=== PATIENT | female | born 1940 | race Hispanic/Latino ===

== ENCOUNTER 2020-11-30 04:19 | Observation (INO) | payer MEDICARE ==
[2020-11-30 05:53] LABS: Basophils # (Auto) 0.1 K/mm3 (0.0-0.1); Basophils % (Auto) 0.9 % (0.0-1.8); Eosinophils % (Auto) 0.3 % (0.0-4.3); Hematocrit 41.1 % (30.3-42.9); Hemoglobin 14.1 gm/dl (10.1-14.3); Lymphocytes # (Auto) 1.4 K/mm3 (1.2-5.4); Lymphocytes % (Auto) 10.9 % (13.4-35.0); Mean Corpuscular HGB Conc 34 % (30-34); Mean Corpuscular Volume 98 fl (79-97); Monocytes # (Auto) 0.9 K/mm3 (0.0-0.8); Monocytes % (Auto) 6.6 % (0.0-7.3); Platelet Count 198 K/mm3 (140-440); Red Blood Count 4.18 M/mm3 (3.65-5.03); Red Cell Distribution Width 14.1 % (13.2-15.2)
--- NOTE | 2020-11-30 06:14 | XRay Report ---
CHEST 1 VIEW [id number] INDICATION / CLINICAL INFORMATION: Chest Pain COMPARISON: None available. FINDINGS: SUPPORT DEVICES: None HEART / MEDIASTINUM: No significant abnormality. LUNGS / PLEURA: Mild probable scarring is seen in the left base. No significant acute infiltrates are seen. No pneumothorax. ADDITIONAL FINDINGS: No significant additional findings. IMPRESSION: No significant acute abnormality Signer Name: Mic Nunez MD Signed: 11/30/2020 6:09 AM Workstation Name: [id number]
[2020-11-30 06:25] LABS: Alanine Aminotransferase 12 units/L (7-56); Albumin 3.8 g/dL (3.9-5); BUN/Creatinine Ratio 10; Blood Urea Nitrogen 9 mg/dL (7-17); Calcium 8.6 mg/dL (8.4-10.2); Hemolysis Index 4
[2020-11-30] MEDS ORDERED: METOPROLOL TARTRATE 5 MG/5 ML INJ IV ONE (06:28)
--- NOTE | 2020-11-30 06:35 | Emergency Department Report ---
ED Chest Pain HPI - General Chief Complaint: Chest Pain Stated Complaint: CP Time Seen by Provider: 11/30/20 06:06 Source: patient, EMS Mode of arrival: Stretcher Limitations: No Limitations - History of Present Illness Initial Comments: This is a 80-year-old female who presents to the emergency department via EMS from home with complaint of shortness of breath and chest pain. The patient woke up around 2:30 in the morning with the shortness of breath and shortly afterwards developed midsternal chest pressure that she says later radiated to both of her jaws. She received a full dose aspirin and 1 sublingual nitroglycerin in route with EMS without much change. Currently, at the time of my examination, the patient says her chest pain is 9 out of 10 in intensity. No known aggravating or alleviating factors. She has a history of hypertension, gout, hyperlipidemia, left carotid endarterectomy. She denies any tobacco or illicit drug use. Her father had an NV in his early 50s. The patient had a negative heart catheterization done at [facility] in 2019. Her primary care physician is Dr. Padgett and her field installer is a Dr. Motley. No recent travel or sick contacts at home. She denies any fever, cough, lower extremity swelling, vomiting, abdominal pain. - Related Data Home Medications Medication Instructions Recorded Confirmed Last Taken Amlodipine Besylate [Norvasc] 1 tab PO DAILY 11/30/20 11/30/20 11/29/20 Metoprolol [Lopressor] 25 mg PO ONCE 11/30/20 11/30/20 11/29/20 Xanax TAB 0.25 mg PO PRN PRN 11/30/20 11/30/20 11/29/20 allopurinoL [Zyloprim] 300 mg PO QDAY 11/30/20 11/30/20 11/29/20 predniSONE [Deltasone] 1 tab PO DAILY 11/30/20 11/30/20 11/29/20 traZODone [Desyrel] 100 mg PO QHS 11/30/20 11/30/20 11/29/20 Allergies Allergy/AdvReac Type Severity Reaction Status Date / Time codeine Allergy Rash Verified 11/30/20 04:43 Heart Score - HEART Score History: Moderately suspicious EKG: Non-specific Age: > 65 Risk factors: 1-2 risk factors Troponin: < normal limit HEART Score: 5 - EKG Read Time Time EKG Completed: 04:54 EKG Read Time: 05:11 - Critical Actions Critical Actions: 4-6 pts:12-16.6% risk of adverse cardiac event. Should be admitted ED Review of Systems ROS: Stated complaint: CP Other details as noted in HPI Comment: All other systems reviewed and negative Constitutional: denies: chills, fever Eyes: denies: eye pain, vision change ENT: denies: ear pain, throat pain Respiratory: shortness of breath. denies: no symptoms reported, cough Cardiovascular: chest pain. denies: edema Gastrointestinal: denies: abdominal pain, vomiting Genitourinary: denies: dysuria, discharge Musculoskeletal: denies: back pain, arthralgia Skin: denies: rash, lesions Neurological: denies: headache, weakness ED Past Medical Hx - Social History Smoking Status: Never Smoker Substance Use Type: Alcohol - Medications Home Medications: Home Medications Medication Instructions Recorded Confirmed Last Taken Type Amlodipine Besylate [Norvasc] 1 tab PO DAILY 11/30/20 11/30/20 11/29/20 History Metoprolol [Lopressor] 25 mg PO ONCE 11/30/20 11/30/20 11/29/20 History Xanax TAB 0.25 mg PO PRN PRN 11/30/20 11/30/20 11/29/20 History allopurinoL [Zyloprim] 300 mg PO QDAY 11/30/20 11/30/20 11/29/20 History predniSONE [Deltasone] 1 tab PO DAILY 11/30/20 11/30/20 11/29/20 History traZODone [Desyrel] 100 mg PO QHS 11/30/20 11/30/20 11/29/20 History ED Physical Exam - General Limitations: No Limitations - Other Other exam information: GENERAL: The patient is well-developed well-nourished. HENT: Normocephalic. Atraumatic. Patient has moist mucous membranes. EYES: Extraocular motions are intact. NECK: Supple. Trachea is midline. CHEST/LUNGS: Clear to auscultation. There is no respiratory distress noted. HEART/CARDIOVASCULAR: Regular. There is mild tachycardia. There is no murmur. ABDOMEN: Abdomen is soft, nontender. Patient has normal bowel sounds. There is no abdominal distention. SKIN: Skin is warm and dry. NEURO: The patient is awake, alert, and oriented. The patient is cooperative. The patient has no focal neurologic deficits. Normal speech. MUSCULOSKELETAL: There is no tenderness or deformity. There is no limitation range of motion. ED Course Vital Signs 11/30/20 11/30/20 11/30/20 04:28 04:34 05:01 Temperature 99.3 F Pulse Rate 121 H 122 H 110 H Respiratory 17 17 13 Rate Blood Pressure 173/77 166/76 Blood Pressure 173/77 [Right] O2 Sat by Pulse 97 97 95 Oximetry 11/30/20 11/30/20 11/30/20 06:01 06:31 06:36 Temperature Pulse Rate 104 H 113 H Respiratory 12 Rate Blood Pressure 177/86 177/86 178/96 Blood Pressure [Right] O2 Sat by Pulse 94 95 Oximetry 11/30/20 11/30/20 06:45 07:01 Temperature Pulse Rate 94 H 95 H Respiratory 23 14 Rate Blood Pressure 178/96 160/90 Blood Pressure [Right] O2 Sat by Pulse 94 95 Oximetry CHERYLE score - Cheryle Score Age > 65: (1) Yes Aspirin use within the Past 7 Days: (0) No 3 or more CAD Risk Factors: (0) No 2 or more Angina events in past 24 hrs: (1) Yes Known CAD with more than 50% Stenosis: (0) No Elevated Cardiac Markers: (0) No ST Deviation Greater than 0.5mm: (0) No CHERYLE Score: 2 ED Medical Decision Making - Lab Data Result diagrams: 11/30/20 05:36 11/30/20 05:36 - EKG Data -: EKG Interpreted by Mo EKG shows normal: sinus rhythm, axis (Left axis deviation), intervals, QRS complexes (LVH), ST-T waves Rate: tachycardia (111 bpm) - EKG Data When compared to previous EKG there are: previous EKG unavailable Interpretation: other (Sinus rhythm at 111 bpm, left axis deviation, LVH. No ST elevation NV) - Radiology Data Radiology results: image reviewed interpreted by me: Chest x-ray does not show any acute process. There are no pleural effusions, obvious pneumonia and there is no pneumothorax. No widened mediastinum. - Medical Decision Making This patient presents to the emergency department with a complaint of some acute shortness of breath and midsternal chest pain that started around 2:30 AM. EKG does not have any morphology consistent with ST elevation myocardial infarction. Chest x-ray does not show any pneumonia, pleural effusions, pneumothorax, widened mediastinum, or any other acute process. Patient's labs have been unremarkable thus far including CBC, metabolic panel, negative troponin and negative D-dimer. Patient continued to have pain despite receiving aspirin and nitroglycerin with EMS. She presents with hypertension but the r est of her vital signs are reassuring including being afebrile. The patient was given a dose of IV analgesia. She has a moderate heart score. She will be admitted to the hospital for further evaluation and treatment was accepted for admission by the hospitalist service. Critical Care Time: No Critical care attestation.: If time is entered above; I have spent that time in minutes in the direct care of this critically ill patient, excluding procedure time. ED Disposition Clinical Impression: Acute chest pain, Angina at rest Hypertension Qualifiers: Hypertension type: essential hypertension Qualified Code(s): I10 - Essential (primary) hypertension Disposition: OP ADMIT IP TO THIS HOSP Is pt being admited?: Yes Condition: Serious Time of Disposition: 07:30
[2020-11-30] MEDS ORDERED: MORPHINE 2 MG/1 ML INJ IV ONE (07:00)
[2020-11-30] MEDS ORDERED: IPRATROPIUM/ALBUTEROL SULFATE 3 ML AMPUL.NEB IH ONE (07:01)
[2020-11-30] MEDS ORDERED: MORPHINE 4 MG/1 ML INJ IV ONE (07:02)
[2020-11-30] MEDS ORDERED: ONDANSETRON 4 MG/2 ML INJ IV ONE (07:02)
[2020-11-30] MEDS ORDERED: MORPHINE 2 MG/1 ML INJ ONE (07:11)
[2020-11-30] MEDS ORDERED: hydrALAZINE 20 MG/1 ML INJ IV PRN (08:37)
[2020-11-30] MEDS ORDERED: XANAX 0.25 MG PO PRN (10:04)
--- NOTE | 2020-11-30 10:14 | History and Physical Report ---
History of Present Illness Date of examination: 11/30/20 Date of admission: 11/30/20 07:31 Chief complaint: Shortness of breath with chest pain History of present illness: Patient is a 80-year-old female with past medical history significant for high blood pressure, gout, hyperlipidemia, left carotid enterectomy, who recently had a negative cardiac catheterization done at [facility] in 2019. She follows with primary care Dr. Padgett fish egg packer Dr. Motley. She presents to the ER today following waking up at 2:30 AM in the morning with shortness of breath while walking around thinking that it will go away says she began to have midsternal chest pressure which started in the epigastric region and then radiated all the way to the base of bilateral side of the neck. And into her jaws. She denied any nausea vomiting. She rates the pain a 9/10 in intensity got her very anxious and prompted presentation to the ED. She denies tobacco use or illicit drug use although reports that her father had MN in her in his early 50s. She reports occasional drink maybe once a month with the . And limited to a glass. In the ER she was noted to have a negative D-dimer and no abnormality on EKG although I have not seen the latter. She was requested for admission as her blood pressure was significantly elevated. Otherwise she states that her blood pressures regularly controlled with current medication with pressures normally in the 120s systolic. Past History Past Medical History: GERD, hypertension, hyperlipidemia, other (Gout) Past Surgical History: No surgical history Social history: , lives with family, full code. denies: smoking, alcohol abuse, prescription drug abuse, IV drug use Family history: no significant family history Medications and Allergies Allergies Allergy/AdvReac Type Severity Reaction Status Date / Time codeine Allergy Rash Verified 11/30/20 04:43 Home Medications Medication Instructions Recorded Confirmed Last Taken Type Amlodipine Besylate [Norvasc] 1 tab PO DAILY 11/30/20 11/30/20 11/29/20 History Metoprolol [Lopressor] 25 mg PO ONCE 11/30/20 11/30/20 11/29/20 History Xanax TAB 0.25 mg PO PRN PRN 11/30/20 11/30/20 11/29/20 History allopurinoL [Zyloprim] 300 mg PO QDAY 11/30/20 11/30/20 11/29/20 History predniSONE [Deltasone] 1 tab PO DAILY 11/30/20 11/30/20 11/29/20 History traZODone [Desyrel] 100 mg PO QHS 11/30/20 11/30/20 11/29/20 History Active Meds: Active Medications Acetaminophen (Acetaminophen 325 Mg Tab) 650 mg PO Q4H PRN PRN Reason: Pain MILD(1-3)/Fever >100.5/TORRES Albuterol (Albuterol 2.5 Mg/3 Ml Nebu) 2.5 mg IH Q4HRT PRN PRN Reason: Shortness Of Breath Albuterol/Ipratropium (Ipratropium/Albuterol Sulfate 3 Ml Ampul.Neb) 1 ampul IH Q6HRT [facility] Allopurinol (Allopurinol 300 Mg Tab) 300 mg PO QDAY [facility] Amlodipine Besylate (Amlodipine 5 Mg Tab) mg PO DAILY [facility] Aspirin (Aspirin 81 Mg Tab Chew) 81 mg PO QDAY [facility] Atorvastatin Calcium (Atorvastatin 40 Mg Tab) 40 mg PO QHS [facility] Enoxaparin Sodium (Enoxaparin 40 Mg/0.4 Ml Inj) 40 mg SUB-Q QDAY@2200 [facility]; Protocol Famotidine (Famotidine 10 Mg Tab) 20 mg PO BID [facility] Hydralazine HCl (Hydralazine 20 Mg/1 Ml Inj) 10 mg IV Q6HR PRN PRN Reason: Blood Pressure Last Admin: 11/30/20 09:05 Dose: 10 mg Documented by: Metoprolol Tartrate (Metoprolol Tartrate 25 Mg Tab) 25 mg PO DAILY [facility] Miscellaneous Medication (Xanax Tab) 0.25 mg PO PRN PRN PRN Reason: Anxiety Morphine Sulfate (Morphine 2 Mg/1 Ml Inj) 2 mg IV Q4H PRN PRN Reason: Pain, Moderate (4-6) Naloxone HCl (Naloxone 0.4 Mg/1 Ml Inj) 0.1 mg IV Q2MIN PRN PRN Reason: Res Rate </= 8 or 02 SAT < 92% Ondansetron HCl (Ondansetron 4 Mg/2 Ml Inj) 4 mg IV Q4H PRN PRN Reason: Nausea And Vomiting Prednisone (Prednisone 5 Mg Tab) mg PO DAILY [facility] Senna (Sennosides 8.6 Mg Tab) 8.6 mg PO Q12HR [facility] Sodium Chloride (Sodium Chloride 0.9% 10 Ml Flush Syringe) 10 ml IV BID [facility] Sodium Chloride (Sodium Chloride 0.9% 10 Ml Flush Syringe) 10 ml IV PRN PRN PRN Reason: LINE FLUSH Tramadol HCl (Tramadol 50 Mg Tab) 50 mg PO Q6H PRN PRN Reason: Pain, Moderate (4-6) Trazodone HCl (Trazodone 100 Mg Tab) 100 mg PO QHS [facility] Review of Systems All systems: negative Constitutional: malaise Cardiovascular: chest pain, shortness of breath, dyspnea on exertion, no orthopnea, no palpitations, no rapid/irregular heart beat, no edema, no syncope, no lightheadedness Respiratory: shortness of breath, dyspnea on exertion, no cough, no cough with sputum, no excessive sputum, no hemoptysis, no congestion, no wheezing, no pleurisy, no pain, no pain on inspiration, no snoring, no sleep apnea, no respiratory infections, no home oxygen Gastrointestinal: no abdominal pain, no nausea, no vomiting, no diarrhea, no constipation, no change in bowel habits, no BRBPR, no melena, no hematochezia, no loss of appetite, no jaundice Exam - Physical Exam Narrative exam: VITAL SIGNS: Reviewed. GENERAL: The patient appears normally developed, anxious appearing vital signs as documented. HEAD: No signs of head trauma. EYES: Pupils are equal. Extraocular motions intact. EARS: Hearing grossly intact. MOUTH: Oropharynx is normal. NECK: No adenopathy, no JVD. CHEST: Chest with clear breath sounds bilaterally. No wheezes, rales, or rhonchi. CARDIAC: Regular rate and rhythm. S1 and S2, without murmurs, gallops, or rubs. VASCULAR: No Edema. Peripheral pulses normal and equal in all extremities. ABDOMEN: Soft, non tender and non distended. No rebound or guarding, and no masses palpated. Bowel Sounds normal. MUSCULOSKELETAL: Good range of motion of all major joints. Extremities without clubbing, cyanosis or edema. NEUROLOGIC EXAM: Alert and oriented x 3 No focal sensory or strength deficits. Speech normal. Follows commands. PSYCHIATRIC: Mood normal. SKIN: detail exam as documented in skin assessment - Constitutional Vitals: Temp Pulse Resp BP Pulse Ox 99.3 F 107 H 16 152/74 95 11/30/20 04:34 11/30/20 09:01 11/30/20 09:01 11/30/20 09:01 11/30/20 09:01 HEART Score - HEART Score EKG: Non-specific Age: > 65 Risk factors: 1-2 risk factors Troponin: Troponin T < 0.010 ng/mL (0.00-0.029) 11/30/20 08:11 Troponin: < normal limit - Critical Actions Critical Actions: 4-6 pts:12-16.6% risk of adverse cardiac event. Should be admitted Results - Labs CBC & Chem 7: 11/30/20 05:36 11/30/20 05:36 Labs: Laboratory Last Values WBC 12.9 K/mm3 (4.5-11.0) H 11/30/20 05:36 RBC 4.18 M/mm3 (3.65-5.03) 11/30/20 05:36 Hgb 14.1 gm/dl (10.1-14.3) 11/30/20 05:36 Hct 41.1 % (30.3-42.9) 11/30/20 05:36 MCV 98 fl (79-97) H 11/30/20 05:36 MCH 34 pg (28-32) H 11/30/20 05:36 MCHC 34 % (30-34) 11/30/20 05:36 RDW 14.1 % (13.2-15.2) 11/30/20 05:36 Plt Count 198 K/mm3 (140-440) 11/30/20 05:36 Lymph % (Auto) 10.9 % (13.4-35.0) L 11/30/20 05:36 [place] % (Auto) 6.6 % (0.0-7.3) 11/30/20 05:36 Eos % (Auto) 0.3 % (0.0-4.3) 11/30/20 05:36 Baso % (Auto) 0.9 % (0.0-1.8) 11/30/20 05:36 Lymph # (Auto) 1.4 K/mm3 (1.2-5.4) 11/30/20 05:36 [place] # (Auto) 0.9 K/mm3 (0.0-0.8) H 11/30/20 05:36 Eos # (Auto) 0.0 K/mm3 (0.0-0.4) 11/30/20 05:36 Baso # (Auto) 0.1 K/mm3 (0.0-0.1) 11/30/20 05:36 Seg Neutrophils % 81.3 % (40.0-70.0) H 11/30/20 05:36 Seg Neutrophils # 10.5 K/mm3 (1.8-7.7) H 11/30/20 05:36 D-Dimer 173.47 ng/mlDDU (0-234) 11/30/20 06:28 Sodium 146 mmol/L (137-145) H 11/30/20 05:36 Potassium 3.9 mmol/L (3.6-5.0) 11/30/20 05:36 Chloride 103.6 mmol/L (98-107) 11/30/20 05:36 Carbon Dioxide 32 mmol/L (22-30) H 11/30/20 05:36 Anion Gap 14 mmol/L 11/30/20 05:36 BUN 9 mg/dL (7-17) 11/30/20 05:36 Creatinine 0.9 mg/dL (0.6-1.2) 11/30/20 05:36 Estimated GFR > 60 ml/min 11/30/20 05:36 BUN/Creatinine Ratio 10 % 11/30/20 05:36 Glucose 102 mg/dL (65-100) H 11/30/20 05:36 Calcium 8.6 mg/dL (8.4-10.2) 11/30/20 05:36 Total Bilirubin 0.20 mg/dL (0.1-1.2) 11/30/20 05:36 AST 16 units/L (5-40) 11/30/20 05:36 ALT 12 units/L (7-56) 11/30/20 05:36 Alkaline Phosphatase 95 units/L (35-129) 11/30/20 05:36 Troponin T < 0.010 ng/mL (0.00-0.029) 11/30/20 08:11 Total Protein 6.1 g/dL (6.3-8.2) L 11/30/20 05:36 Albumin 3.8 g/dL (3.9-5) L 11/30/20 05:36 Albumin/Globulin Ratio 1.7 % 11/30/20 05:36 Assessment and Plan Assessment and plan: Patient is a 80-year-old female with past medical history significant for high blood pressure, gout, hyperlipidemia, left carotid enterectomy, who recently had a negative cardiac catheterization done at [facility] in 2019. She follows with primary care Dr. Padgett fish egg packer Dr. Motley. She presents to the ER today following waking up at 2:30 AM in the morning with shortness of breath while walking around thinking that it will go away says she began to have midsternal chest pressure which started in the epigastric region and then radiated all the way to the base of bilateral side of the neck. And into her jaws. She denied any nausea vomiting. She rates the pain a 9/10 in intensity got her very anxious and prompted presentation to the ED. She denies tobacco use or illicit drug use although reports that her father had MN in her in his early 50s. She reports occasional drink maybe once a month with the . And limited to a glass. In the ER she was noted to have a negative D-dimer and no abnormality on EKG although I have not seen the latter. She was requested for admission as her blood pressure was significantly elevated. Otherwise she states that her blood pressures regularly controlled with current medication with pressures normally in the 120s systolic. Atypical chest pain Hypertensive urgency Acute respiratory failure with hypoxia Hyperlipidemia Gout Status post left total enterectomy Leukocytosis Anxiety Plan Admit to telemetry and observation Cardiology consult Resume home medications Nebulizer treatments scheduled and as needed If patient develops a fever will start patient on antibiotics at this point there is no evidence of sepsis we will monitor leukocytosis as this could be reactive. Hydralazine as needed for better blood pressure control Discussed with cardiology may consider changing amlodipine to Procardia if blood pressure remains uncontrolled We will obtain a CTA of the chest to rule out pulmonary embolism this has been discussed with the patient in addition to risk of contrast. Keep n.p.o. after midnight in case fish egg packer recommend stress test Pain control and antiemetic medication PPI DVT and GI prophylaxis Plan of care discussed with the patient in detail Case also discussed with fish egg packer at bedside. Advance Directives: Yes (30 minutes spent in discussion) VTE prophylaxis?: Chemical Plan of care discussed with patient/family: Yes
--- NOTE | 2020-11-30 10:30 | Consultation ---
History of Present Illness Consult date: 11/30/20 Consult reason: chest pain History of present illness: This is a 80-year old F with chronic hypertension and a history of anxiety. There is no history of coronary artery disease. In 2019, she underwent a cardiac cath that showed normal coronary arteries. At that time, an echocardiogram showed normal left ventricular systolic function, ejection fraction 60-65%. Patient was brought to this hospital by EMS with shortness of breath and chest pain. Patient describes pain in chest that is worse when deep breathing. Denies nausea and vomiting. Denies palpitations. There is no lower extremity edema. Initial workup shows uncontrolled blood pressure, systolic of 173. Chest x-ray shows no acute findings. An ECG is sinus rhythm. No acute ST or T wave changes. Past History Past Medical History: GERD, hypertension, hyperlipidemia, other (Gout) Past Surgical History: No surgical history Social history: , lives with family, full code. denies: smoking, alcohol abuse, prescription drug abuse, IV drug use Family history: no significant family history Medications and Allergies Allergies Allergy/AdvReac Type Severity Reaction Status Date / Time codeine Allergy Rash Verified 11/30/20 04:43 Home Medications Medication Instructions Recorded Confirmed Last Taken Type Amlodipine Besylate [Norvasc] 1 tab PO DAILY 11/30/20 11/30/20 11/29/20 History Metoprolol [Lopressor] 25 mg PO ONCE 11/30/20 11/30/20 11/29/20 History Xanax TAB 0.25 mg PO PRN PRN 11/30/20 11/30/20 11/29/20 History allopurinoL [Zyloprim] 300 mg PO QDAY 11/30/20 11/30/20 11/29/20 History predniSONE [Deltasone] 1 tab PO DAILY 11/30/20 11/30/20 11/29/20 History traZODone [Desyrel] 100 mg PO QHS 11/30/20 11/30/20 11/29/20 History Active Meds: Active Medications Acetaminophen (Acetaminophen 325 Mg Tab) 650 mg PO Q4H PRN PRN Reason: Pain MILD(1-3)/Fever >100.5/TORRES Albuterol (Albuterol 2.5 Mg/3 Ml Nebu) 2.5 mg IH Q4HRT PRN PRN Reason: Shortness Of Breath Albuterol/Ipratropium (Ipratropium/Albuterol Sulfate 3 Ml Ampul.Neb) 1 ampul IH Q6HRT [facility] Allopurinol (Allopurinol 300 Mg Tab) 300 mg PO QDAY [facility] Amlodipine Besylate (Amlodipine 5 Mg Tab) mg PO DAILY [facility] Aspirin (Aspirin 81 Mg Tab Chew) 81 mg PO QDAY [facility] Atorvastatin Calcium (Atorvastatin 40 Mg Tab) 40 mg PO QHS [facility] Enoxaparin Sodium (Enoxaparin 40 Mg/0.4 Ml Inj) 40 mg SUB-Q QDAY@2200 [facility]; Protocol Famotidine (Famotidine 10 Mg Tab) 20 mg PO BID [facility] Hydralazine HCl (Hydralazine 20 Mg/1 Ml Inj) 10 mg IV Q6HR PRN PRN Reason: Blood Pressure Last Admin: 11/30/20 09:05 Dose: 10 mg Documented by: Metoprolol Tartrate (Metoprolol Tartrate 25 Mg Tab) 25 mg PO DAILY [facility] Miscellaneous Medication (Xanax Tab) 0.25 mg PO PRN PRN PRN Reason: Anxiety Morphine Sulfate (Morphine 2 Mg/1 Ml Inj) 2 mg IV Q4H PRN PRN Reason: Pain, Moderate (4-6) Naloxone HCl (Naloxone 0.4 Mg/1 Ml Inj) 0.1 mg IV Q2MIN PRN PRN Reason: Res Rate </= 8 or 02 SAT < 92% Ondansetron HCl (Ondansetron 4 Mg/2 Ml Inj) 4 mg IV Q4H PRN PRN Reason: Nausea And Vomiting Prednisone (Prednisone 5 Mg Tab) mg PO DAILY [facility] Senna (Sennosides 8.6 Mg Tab) 8.6 mg PO Q12HR [facility] Sodium Chloride (Sodium Chloride 0.9% 10 Ml Flush Syringe) 10 ml IV BID [facility] Sodium Chloride (Sodium Chloride 0.9% 10 Ml Flush Syringe) 10 ml IV PRN PRN PRN Reason: LINE FLUSH Tramadol HCl (Tramadol 50 Mg Tab) 50 mg PO Q6H PRN PRN Reason: Pain, Moderate (4-6) Trazodone HCl (Trazodone 100 Mg Tab) 100 mg PO QHS [facility] Review of Systems Cardiovascular: chest pain, shortness of breath Physical Examination Vital Signs Pulse Resp Pulse Ox 121 H 17 97 11/30/20 04:28 11/30/20 04:28 11/30/20 04:28 General appearance: no acute distress HEENT: Positive: PERRL Neck: Positive: trachea midline Cardiac: Positive: Reg Rate and Rhythm Lungs: Positive: Normal Breath Sounds Neuro: Positive: Grossly Intact Extremities: Absent: edema Results 11/30/20 05:36 11/30/20 05:36 Cardiac Enzymes 11/30/20 Range/Units 05:36 AST 16 (5-40) units/L CBC 11/30/20 Range/Units 05:36 WBC 12.9 H (4.5-11.0) K/mm3 RBC 4.18 (3.65-5.03) M/mm3 Hgb 14.1 (10.1-14.3) gm/dl Hct 41.1 (30.3-42.9) % Plt Count 198 (140-440) K/mm3 Lymph # (Auto) 1.4 (1.2-5.4) K/mm3 [place] # (Auto) 0.9 H (0.0-0.8) K/mm3 Eos # (Auto) 0.0 (0.0-0.4) K/mm3 Baso # (Auto) 0.1 (0.0-0.1) K/mm3 Comprehensive Metabolic Panel 11/30/20 Range/Units 05:36 Sodium 146 H (137-145) mmol/L Potassium 3.9 (3.6-5.0) mmol/L Chloride 103.6 (98-107) mmol/L Carbon Dioxide 32 H (22-30) mmol/L BUN 9 (7-17) mg/dL Creatinine 0.9 (0.6-1.2) mg/dL Glucose 102 H (65-100) mg/dL Calcium 8.6 (8.4-10.2) mg/dL AST 16 (5-40) units/L ALT 12 (7-56) units/L Alkaline Phosphatase 95 (35-129) units/L Total Protein 6.1 L (6.3-8.2) g/dL Albumin 3.8 L (3.9-5) g/dL Assessment and Plan Pleuritic chest pain Shortness of breath Uncontrolled Hypertension 2019 LHC at [facility]: normal coronaries. 2019 Echo at [facility]: normal LVEF 60-65%. Recommendations: Optimal hypertension management. CTA chest for PE protocol. Will order an echocardiogram and Lexiscan thallium test for shortness of breath and chest pain.
[2020-11-30] MEDS ORDERED: NALOXONE 0.4 MG/1 ML INJ IV PRN (11:00)
[2020-11-30] MEDS ORDERED: ONDANSETRON 4 MG/2 ML INJ IV PRN (11:00)
[2020-11-30] MEDS ORDERED: ALPRAZolam 0.25 MG TAB PO PRN (11:00)
[2020-11-30] MEDS ORDERED: amLODIPine 5 MG TAB PO SCH ×2 (11:00)
[2020-11-30] MEDS ORDERED: MORPHINE 2 MG/1 ML INJ IV PRN (11:00)
[2020-11-30] MEDS ORDERED: traMADol 50 MG TAB PO PRN (11:00)
[2020-11-30] MEDS ORDERED: ALBUTEROL 2.5 MG/3 ML NEBU IH PRN (11:00)
[2020-11-30 11:24] LABS: Chol/HDL Ratio 3.68 %
--- NOTE | 2020-11-30 13:44 | Cat Scan Report ---
CTA CHEST WITH IV CONTRAST INDICATION: Shortness of breath. TECHNIQUE: Axial CT images were obtained through the chest after injection of 100 cc Omnipaque 350 IV contrast. 3 plane MIP reconstructions were produced. All CT scans at this location are performed using CT dose reduction for ALARA by means of automated exposure control. COMPARISON: One view of the chest performed earlier today. FINDINGS: PULMONARY ARTERIES: There is good opacification to the subsegmental level without evidence of thrombo emboli. AORTA AND ARTERIES: The aorta is normal in caliber and mildly calcified. There is mild great vessel a therosclerosis. No significant coronary atherosclerosis or other significant abnormalities. HEART: No significant abnormality. MEDIASTINUM: No mass or lymphadenopathy. No significant abnormality of the airways. LUNGS: There is mild dependent bilateral atelectasis without an additional significant pulmonary abno rmality. No pneumothorax or pleural effusion. ADDITIONAL FINDINGS: None. UPPER ABDOMEN: No acute findings. BONES: No acute abnormality. Moderate degenerative changes of the shoulders are noted. IMPRESSION: 1. No CT evidence for pulmonary embolism. 2. No acute findings. 3. Additional findings as above. Signer Name: Rico Pavon MD Signed: 11/30/2020 1:39 PM Workstation Name: [id number]
--- NOTE | 2020-11-30 14:50 | Electrocardiograph Report ---
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
--- NOTE | 2020-11-30 14:55 | Electrocardiograph Report ---
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
[2020-11-30] MEDS: IPRATROPIUM/ALBUTEROL SULFATE 3 ML AMPUL.NEB IH SCH ×2 (16:08→19:08)
[2020-11-30] MEDS: ACETAMINOPHEN 325 MG TAB PO PRN (16:26)
[2020-11-30] MEDS ORDERED: ENOXAPARIN 40 MG/0.4 ML INJ SUB-Q SCH (22:00)
[2020-11-30] MEDS: FAMOTIDINE 10 MG TAB PO SCH (22:09)
[2020-11-30] MEDS: traZODone 100 MG TAB PO SCH (22:09)
[2020-11-30] MEDS: SENNOSIDES 8.6 MG TAB PO SCH (22:09)
[2020-12-01] MEDS: ACETAMINOPHEN 325 MG TAB PO PRN (05:27)
[2020-12-01 05:45] LABS: Basophils # (Auto) 0.1 K/mm3 (0.0-0.1); Basophils % (Auto) 0.7 % (0.0-1.8); Eosinophils % (Auto) 0.4 % (0.0-4.3); Hemoglobin 12.9 gm/dl (10.1-14.3); Lymphocytes # (Auto) 2.1 K/mm3 (1.2-5.4); Lymphocytes % (Auto) 21.6 % (13.4-35.0); Mean Corpuscular HGB Conc 34 % (30-34); Mean Corpuscular Volume 99 fl (79-97); Monocytes # (Auto) 0.9 K/mm3 (0.0-0.8); Monocytes % (Auto) 9.1 % (0.0-7.3); Platelet Count 181 K/mm3 (140-440); Red Blood Count 3.82 M/mm3 (3.65-5.03); Red Cell Distribution Width 14.4 % (13.2-15.2)
[2020-12-01 05:53] LABS: BUN/Creatinine Ratio 8; Blood Urea Nitrogen 7 mg/dL (7-17); Calcium 7.9 mg/dL (8.4-10.2); Hemolysis Index 9
[2020-12-01] MEDS: IPRATROPIUM/ALBUTEROL SULFATE 3 ML AMPUL.NEB IH SCH ×2 (07:50→20:36)
[2020-12-01] MEDS ORDERED: REGADENOSON 0.4 MG/5 ML INJ IV ONE ×2 (08:21→08:22)
--- NOTE | 2020-12-01 09:23 | Progress Note ---
Assessment and Plan - Patient Problems (1) Shortness of breath Current Visit: Yes Status: Acute Plan to address problem: Patient has shortness of breath with a sensation of being unable to take a deep breath, extensive work-up so far unrevealing. Echocardiogram shows normal to hyperdynamic left ventricular systolic function with ejection fraction 65 to 70%, no significant valvular lesions noted. A cardiac catheterization a year and a half ago reported normal coronary arteries. The patient has also had a Lexiscan thallium stress test today, results are pending. We ordered a CT angiogram of the chest that was negative for pulmonary embolism. This morning, she developed new onset rapid atrial fibrillation, which occurred soon following a bronchodilator treatment, but does not appear a likely explanation for her presenting shortness of breath. Prior serial ECGs and telemetry strips since her admission consistently showed a sinus rhythm. We will recommend further pulmonary evaluation of persistent dyspnea. (2) Rapid atrial fibrillation Current Visit: Yes Status: Acute Plan to address problem: New onset atrial fibrillation, will be treated with diltiazem and amiodarone, and Eliquis for oral anticoagulation. Subjective Date of service: 12/01/20 Interval history: Patient continues to experience shortness of breath, this morning was given a bronchodilator treatment prior to coming down to the stress lab. In the stress lab, we find that she has new onset, rapid atrial fibrillation. The Lexiscan stress test protocol was completed, and we will recommend treatment for atrial fibrillation suppression as well as oral anticoagulation. Objective Vital Signs Temp Pulse Pulse Pulse Resp Resp Resp 12/01/20 08:21 98.2 F 118 H 12/01/20 07:51 12/01/20 07:50 88 12/01/20 05:14 100.0 F H 98 H 18 12/01/20 05:13 100 H 12/01/20 01:48 12/01/20 00:36 99.9 F H 104 H 12/01/20 00:00 106 H 11/30/20 22:00 11/30/20 19:18 98.8 F 103 H 11/30/20 19:15 86 18 11/30/20 19:11 11/30/20 16:10 103 H 105 H 18 18 11/30/20 16:05 100.0 F H 105 H 11/30/20 13:08 18 11/30/20 11:35 113 H 111 H 18 20 11/30/20 11:12 11/30/20 10:32 102 H 18 11/30/20 09:30 111 H 15 11/30/20 09:20 109 H 21 BP Pulse Ox 12/01/20 08:21 116/57 92 12/01/20 07:51 94 12/01/20 07:50 12/01/20 05:14 91 12/01/20 05:13 143/73 89 12/01/20 01:48 92 12/01/20 00:36 139/68 12/01/20 00:00 11/30/20 22:00 96 11/30/20 19:18 116/48 91 11/30/20 19:15 11/30/20 19:11 94 11/30/20 16:10 11/30/20 16:05 123/55 92 11/30/20 13:08 11/30/20 11:35 11/30/20 11:12 95 11/30/20 10:32 144/72 93 11/30/20 09:30 152/74 94 11/30/20 09:20 152/74 93 - Physical Examination General: No Apparent Distress HEENT: Positive: PERRL Neck: Positive: trachea midline Cardiac: Positive: irregularly irregular Lungs: Positive: Decreased Breath Sounds Neuro: Positive: Grossly Intact Extremities: Absent: edema - Labs and Meds Lipids 11/30/20 Range/Units 10:15 Triglycerides 114 (2-149) mg/dL Cholesterol 199 (50-199) mg/dL HDL Cholesterol 54 (40-59) mg/dL Cholesterol/HDL Ratio 3.68 % CBC 12/01/20 Range/Units 04:22 WBC 9.6 (4.5-11.0) K/mm3 RBC 3.82 (3.65-5.03) M/mm3 Hgb 12.9 (10.1-14.3) gm/dl Hct 38.0 (30.3-42.9) % Plt Count 181 (140-440) K/mm3 Lymph # (Auto) 2.1 (1.2-5.4) K/mm3 [place] # (Auto) 0.9 H (0.0-0.8) K/mm3 Eos # (Auto) 0.0 (0.0-0.4) K/mm3 Baso # (Auto) 0.1 (0.0-0.1) K/mm3 Comprehensive Metabolic Panel 12/01/20 Range/Units 04:22 Sodium 142 (137-145) mmol/L Potassium 3.7 (3.6-5.0) mmol/L Chloride 100.3 (98-107) mmol/L Carbon Dioxide 32 H (22-30) mmol/L BUN 7 (7-17) mg/dL Creatinine 0.9 (0.6-1.2) mg/dL Glucose 103 H (65-100) mg/dL Calcium 7.9 L (8.4-10.2) mg/dL
[2020-12-01] MEDS ORDERED: METOPROLOL TARTRATE 25 MG TAB PO SCH (10:00)
[2020-12-01] MEDS ORDERED: AMIODARONE 300 MG in DEXTROSE 5% IN WATER 100 ML IV ONE (10:00)
--- NOTE | 2020-12-01 10:42 | Nuclear Medicine Report ---
APPROVED REPORT Exam: Nuclear Stress Test Indication: [facility] pain [facility] Ht: 5 ft 8 in Wt: 179 lbs BSA: 1.95 m2 HR: 133 bpm BP: 132/68 mmHg BMI: 27.21 Rhythm: Atrial Fibrillation Stress Test Details Stress Test: Pharmacologic stress testing performed using 0.4 mg of regadenoson per 5 mL given IV over 10 seconds. HR Resting HR: 134 bpmMax Heart Rate (APMHR): 141 bpm Max HR Achieved: 143 bpmTarget HR (85% APMHR): 119 bpm % of APMHR: 101 Recovery HR: 141 bpm BP Resting BP: 132/68 mmHg Max BP: 145/70 mmHg Recovery BP: 124/62 mmHg ECG Resting ECG: Atrial Fibrillation Stress ECG: Atrial Fibrillation ST Change: None Arrhythmia: Atrial fibrillation Recovery ECG: Atrial Fibrillation Recovery ST Change: None Stress ECG Conclusion Baseline atrial fibrillation, unchanged following Lexiscan morphologic stress testing. No ST changes of ischemia. Myocardial perfusion images to follow for final test interpretation. NM EXAM: Myocardial Perfusion REST/STRESS Imaging Protocol: Rest Tc-99m/Stress Tc-99m 1 day Resting Data Rest SPECT myocardial perfusion imaging was performed in supine position 45 minutes following the intravenous injection of 10 mCi of Tc-99m Myoview. Time of rest injection: 0360 Pharmacologic Stress Pharmacologic stress test was performed by injecting Regadenoson 0.4 mg IV push followed by the intravenous injection of 28 mCi of Tc-99m Myoview. Time of stress injection: 0910 Comments The patient is in a-fib.The images aren't gated. Study Data TID = 1.51. Perfusion Nuclear Conclusion ECG Findings: negative for ischemia Clinical Findings: negative for ischemia Nuclear Findings: negative for ischemia Risk Study: low The rest and stress myocardial perfusion images were normal, no ischemic defects identified. The study was not gated for left ventricular function due to the presence of atrial fibrillation. Conclusion Baseline atrial fibrillation, unchanged following Lexiscan morphologic stress testing. No ST changes of ischemia. Myocardial perfusion images to follow for final test interpretation.
[2020-12-01] MEDS: FAMOTIDINE 10 MG TAB PO SCH ×2 (10:51→22:13)
[2020-12-01] MEDS: ASPIRIN 81 MG TAB CHEW PO SCH (10:51)
[2020-12-01] MEDS: SENNOSIDES 8.6 MG TAB PO SCH ×2 (10:51→22:08)
[2020-12-01] MEDS: allopurinoL 300 MG TAB PO SCH (10:52)
[2020-12-01] MEDS: predniSONE 5 MG TAB PO SCH (10:52)
[2020-12-01] MEDS: AMIODARONE 200 MG TAB PO SCH ×2 (10:52→22:08)
--- NOTE | 2020-12-01 12:20 | Progress Note ---
Assessment and Plan Assessment and plan: Patient is a 80-year-old female with past medical history significant for high blood pressure, gout, hyperlipidemia, left carotid enterectomy, who recently had a negative cardiac catheterization done at [facility] in 2019. She follows with primary care Dr. Padgett clinical informatics physician Dr. Motley. She presents to the ER today following waking up at 2:30 AM in the morning with shortness of breath while walking around thinking that it will go away says she began to have midsternal chest pressure which started in the epigastric region and then radiated all the way to the base of bilateral side of the neck. She denied any nausea vomiting. She rates the pain a 9/10 in intensity got her very anxious an d prompted presentation to the ED. She denies tobacco use or illicit drug use although reports that her father had NE in her in his early 50s. She reports occasional drink maybe once a month with the . And limited to a glass. In the ER she was noted to have a negative D-dimer and no abnormality on EKG although I have not seen the latter. She was requested for admission as her blood pressure was significantly elevated. Otherwise she states that her blood pressures regularly controlled with current medication with pressures normally in the 120s systolic. Atypical chest pain Hypertensive urgency Acute respiratory failure with hypoxia Atrial fibrillation Febrile illness Hyperlipidemia Gout Status post left total enterectomy Leukocytosis Anxiety Plan 12/01: Continue supportive care, started on anticoagulation and rate controlling agent for the Atrial fibrillation Will obtain Pulmonary consultation for management of shortness of breath Empiric Antibiotic coverage Cardiology consult Resume home medications Nebulizer treatments scheduled and as needed If patient develops a fever will start patient on antibiotics at this point there is no evidence of sepsis we will monitor leukocytosis as this could be reactive. Hydralazin as needed for better blood pressure control Discussed with cardiology may consider changing amlodipine to Procardia if blood pressure remains uncontrolled We will obtain a CTA of the chest to rule out pulmonary embolism this has been discussed with the patient in addition to risk of contrast. Keep n.p.o. after midnight in case clinical informatics physician recommend stress test Pain control and antiemetic medication PPI DVT and GI prophylaxis Plan of care discussed with the patient in detail Case also discussed with clinical informatics physician at bedside. History Interval history: Patient seen and examined, clinical stable, but today developed atrial fibrillation. Hospitalist Physical - Constitutional Vitals: Temp Pulse Resp BP Pulse Ox 98.2 F 118 H 20 107/55 92 12/01/20 08:21 12/01/20 08:21 12/01/20 11:29 12/01/20 10:03 12/01/20 08:21 General appearance: Present: no acute distress HEART Score - HEART Score EKG: Non-specific Age: > 65 Risk factors: 1-2 risk factors Troponin: Troponin T < 0.010 ng/mL (0.00-0.029) 11/30/20 14:14 Troponin: < normal limit - Critical Actions Critical Actions: 4-6 pts:12-16.6% risk of adverse cardiac event. Should be admitted Results - Labs CBC & Chem 7: 12/01/20 04:22 12/01/20 04:22 Labs: Laboratory Last Values WBC 9.6 K/mm3 (4.5-11.0) 12/01/20 04:22 RBC 3.82 M/mm3 (3.65-5.03) 12/01/20 04:22 Hgb 12.9 gm/dl (10.1-14.3) 12/01/20 04:22 Hct 38.0 % (30.3-42.9) 12/01/20 04:22 MCV 99 fl (79-97) H 12/01/20 04:22 MCH 34 pg (28-32) H 12/01/20 04:22 MCHC 34 % (30-34) 12/01/20 04:22 RDW 14.4 % (13.2-15.2) 12/01/20 04:22 Plt Count 181 K/mm3 (140-440) 12/01/20 04:22 Lymph % (Auto) 21.6 % (13.4-35.0) 12/01/20 04:22 [place] % (Auto) 9.1 % (0.0-7.3) H 12/01/20 04:22 Eos % (Auto) 0.4 % (0.0-4.3) 12/01/20 04:22 Baso % (Auto) 0.7 % (0.0-1.8) 12/01/20 04:22 Lymph # (Auto) 2.1 K/mm3 (1.2-5.4) 12/01/20 04:22 [place] # (Auto) 0.9 K/mm3 (0.0-0.8) H 12/01/20 04:22 Eos # (Auto) 0.0 K/mm3 (0.0-0.4) 12/01/20 04:22 Baso # (Auto) 0.1 K/mm3 (0.0-0.1) 12/01/20 04:22 Seg Neutrophils % 68.2 % (40.0-70.0) 12/01/20 04:22 Seg Neutrophils # 6.6 K/mm3 (1.8-7.7) 12/01/20 04:22 D-Dimer 173.47 ng/mlDDU (0-234) 11/30/20 06:28 Sodium 142 mmol/L (137-145) 12/01/20 04:22 Potassium 3.7 mmol/L (3.6-5.0) 12/01/20 04:22 Chloride 100.3 mmol/L (98-107) 12/01/20 04:22 Carbon Dioxide 32 mmol/L (22-30) H 12/01/20 04:22 Anion Gap 13 mmol/L 12/01/20 04:22 BUN 7 mg/dL (7-17) 12/01/20 04:22 Creatinine 0.9 mg/dL (0.6-1.2) 12/01/20 04:22 Estimated GFR > 60 ml/min 12/01/20 04:22 BUN/Creatinine Ratio 8 % 12/01/20 04:22 Glucose 103 mg/dL (65-100) H 12/01/20 04:22 Calcium 7.9 mg/dL (8.4-10.2) L 12/01/20 04:22 Total Bilirubin 0.20 mg/dL (0.1-1.2) 11/30/20 05:36 AST 16 units/L (5-40) 11/30/20 05:36 ALT 12 units/L (7-56) 11/30/20 05:36 Alkaline Phosphatase 95 units/L (35-129) 11/30/20 05:36 Troponin T < 0.010 ng/mL (0.00-0.029) 11/30/20 14:14 Total Protein 6.1 g/dL (6.3-8.2) L 11/30/20 05:36 Albumin 3.8 g/dL (3.9-5) L 11/30/20 05:36 Albumin/Globulin Ratio 1.7 % 11/30/20 05:36 Triglycerides 114 mg/dL (2-149) 11/30/20 10:15 Cholesterol 199 mg/dL (50-199) 11/30/20 10:15 LDL Cholesterol Direct 136 mg/dL (50-130) H 11/30/20 10:15 HDL Cholesterol 54 mg/dL (40-59) 11/30/20 10:15 Cholesterol/HDL Ratio 3.68 % 11/30/20 10:15 Gallegos/IV: Voiding Method Toilet Active Medications - Current Medications Current Medications: Generic Name Dose Route Start Last Admin Trade Name Freq PRN Reason Stop Dose Admin Acetaminophen 650 mg 11/30/20 10:30 12/01/20 05:27 Acetaminophen 325 Mg Tab PO 650 mg Q4H PRN Administration Pain MILD(1-3)/Fever >100.5/TORRES Allopurinol 300 mg 12/01/20 10:00 12/01/20 10:52 Allopurinol 300 Mg Tab PO 300 mg QDAY BENY Administration Alprazolam 0.25 mg 11/30/20 11:00 Alprazolam 0.25 Mg Tab PO DAILY PRN Anxiety Amiodarone HCl 200 mg 12/01/20 10:00 12/01/20 10:52 Amiodarone 200 Mg Tab PO 200 mg BID BENY Administration Aspirin 81 mg 12/01/20 10:00 12/01/20 10:51 Aspirin 81 Mg Tab Chew PO 81 mg QDAY BENY Administration Atorvastatin Calcium 40 mg 11/30/20 22:00 11/30/20 22:09 Atorvastatin 40 Mg Tab PO 40 mg QHS BENY Administration Diltiazem HCl 60 mg 12/01/20 12:00 Diltiazem 60 Mg Tab PO Q6HR BENY Famotidine 20 mg 11/30/20 22:00 12/01/20 10:51 Famotidine 10 Mg Tab PO 20 mg BID BENY Administration Hydralazine HCl 10 mg 11/30/20 08:37 11/30/20 09:05 Hydralazine 20 Mg/1 Ml Inj IV 10 mg Q6HR PRN Administration Blood Pressure Levofloxacin/Dextrose 750 mg in 150 mls @ 100 mls/hr 12/01/20 08:00 12/01/20 11:10 Levaquin 750mg/150ml IV 100 mls/hr Q24H BENY Administration Protocol Morphine Sulfate 2 mg 11/30/20 11:00 Morphine 2 Mg/1 Ml Inj IV Q4H PRN Pain, Moderate (4-6) Naloxone HCl 0.1 mg 11/30/20 11:00 Naloxone 0.4 Mg/1 Ml Inj IV Q2MIN PRN Res Rate </= 8 or 02 SAT < 92% Ondansetron HCl 4 mg 11/30/20 11:00 Ondansetron 4 Mg/2 Ml Inj IV Q4H PRN Nausea And Vomiting Prednisone 5 mg 12/01/20 10:00 12/01/20 10:52 Prednisone 5 Mg Tab PO 5 mg DAILY BENY Administration Senna 8.6 mg 11/30/20 22:00 12/01/20 10:51 Sennosides 8.6 Mg Tab PO 8.6 mg Q12HR BENY Administration Sodium Chloride 10 ml 11/30/20 22:00 12/01/20 10:52 Sodium Chloride 0.9% 10 Ml Flush Syringe IV 10 ml BID BENY Administration Sodium Chloride 10 ml 11/30/20 10:02 Sodium Chloride 0.9% 10 Ml Flush Syringe IV PRN PRN LINE FLUSH Tramadol HCl 50 mg 11/30/20 11:00 Tramadol 50 Mg Tab PO Q6H PRN Pain, Moderate (4-6) Trazodone HCl 100 mg 11/30/20 22:00 11/30/20 22:09 Trazodone 100 Mg Tab PO 100 mg QHS BENY Administration
[2020-12-01] MEDS: dilTIAZem 60 MG TAB PO SCH ×2 (15:28→22:09)
--- NOTE | 2020-12-01 15:54 | Consultation ---
History of Present Illness Consult date: 12/01/20 Requesting physician: BEKAH GUEVARA Reason for consult: other (SOB) History of present illness: PULMONARY/CCM CONSULT NOTE (Full dictation # ) Please see dictated notes for full details Past History Past Medical History: GERD, hypertension, hyperlipidemia, other (Gout) Past Surgical History: No surgical history Social history: , lives with family, full code. denies: smoking, alcohol abuse, prescription drug abuse, IV drug use Family history: no significant family history Medications and Allergies Allergies Allergy/AdvReac Type Severity Reaction Status Date / Time codeine Allergy Rash Verified 11/30/20 04:43 Home Medications Medication Instructions Recorded Confirmed Last Taken Type Amlodipine Besylate [Norvasc] 1 tab PO DAILY 11/30/20 11/30/20 11/29/20 History Metoprolol [Lopressor] 25 mg PO ONCE 11/30/20 11/30/20 11/29/20 History Xanax TAB 0.25 mg PO PRN PRN 11/30/20 11/30/20 11/29/20 History allopurinoL [Zyloprim] 300 mg PO QDAY 11/30/20 11/30/20 11/29/20 History predniSONE [Deltasone] 1 tab PO DAILY 11/30/20 11/30/20 11/29/20 History traZODone [Desyrel] 100 mg PO QHS 11/30/20 11/30/20 11/29/20 History Active Meds: Active Medications Acetaminophen (Acetaminophen 325 Mg Tab) 650 mg PO Q4H PRN PRN Reason: Pain MILD(1-3)/Fever >100.5/TORRES Last Admin: 12/01/20 05:27 Dose: 650 mg Documented by: Allopurinol (Allopurinol 300 Mg Tab) 300 mg PO QDAY [facility] Last Admin: 12/01/20 10:52 Dose: 300 mg Documented by: Alprazolam (Alprazolam 0.25 Mg Tab) 0.25 mg PO DAILY PRN PRN Reason: Anxiety Amiodarone HCl (Amiodarone 200 Mg Tab) 200 mg PO BID [facility] Last Admin: 12/01/20 10:52 Dose: 200 mg Documented by: Aspirin (Aspirin 81 Mg Tab Chew) 81 mg PO QDAY [facility] Last Admin: 12/01/20 10:51 Dose: 81 mg Documented by: Atorvastatin Calcium (Atorvastatin 40 Mg Tab) 40 mg PO QHS [facility] Last Admin: 11/30/20 22:09 Dose: 40 mg Documented by: Diltiazem HCl (Diltiazem 60 Mg Tab) 60 mg PO Q6HR [facility] Last Admin: 12/01/20 15:28 Dose: 60 mg Documented by: Famotidine (Famotidine 10 Mg Tab) 20 mg PO BID [facility] Last Admin: 12/01/20 10:51 Dose: 20 mg Documented by: Hydralazine HCl (Hydralazine 20 Mg/1 Ml Inj) 10 mg IV Q6HR PRN PRN Reason: Blood Pressure Last Admin: 11/30/20 09:05 Dose: 10 mg Documented by: Levofloxacin/Dextrose (Levaquin 750mg/150ml) 750 mg in 150 mls @ 100 mls/hr IV Q24H [facility]; Protocol Last Admin: 12/01/20 11:10 Dose: 100 mls/hr Documented by: Morphine Sulfate (Morphine 2 Mg/1 Ml Inj) 2 mg IV Q4H PRN PRN Reason: Pain, Moderate (4-6) Naloxone HCl (Naloxone 0.4 Mg/1 Ml Inj) 0.1 mg IV Q2MIN PRN PRN Reason: Res Rate </= 8 or 02 SAT < 92% Ondansetron HCl (Ondansetron 4 Mg/2 Ml Inj) 4 mg IV Q4H PRN PRN Reason: Nausea And Vomiting Prednisone (Prednisone 5 Mg Tab) 5 mg PO DAILY [facility] Last Admin: 12/01/20 10:52 Dose: 5 mg Documented by: Senna (Sennosides 8.6 Mg Tab) 8.6 mg PO Q12HR [facility] Last Admin: 12/01/20 10:51 Dose: 8.6 mg Documented by: Sodium Chloride (Sodium Chloride 0.9% 10 Ml Flush Syringe) 10 ml IV BID [facility] Last Admin: 12/01/20 10:52 Dose: 10 ml Documented by: Sodium Chloride (Sodium Chloride 0.9% 10 Ml Flush Syringe) 10 ml IV PRN PRN PRN Reason: LINE FLUSH Tramadol HCl (Tramadol 50 Mg Tab) 50 mg PO Q6H PRN PRN Reason: Pain, Moderate (4-6) Trazodone HCl (Trazodone 100 Mg Tab) 100 mg PO QHS [facility] Last Admin: 11/30/20 22:09 Dose: 100 mg Documented by: Physical Examination Vital signs: Vital Signs Pulse Resp Pulse Ox 121 H 17 97 11/30/20 04:28 11/30/20 04:28 11/30/20 04:28 Results - Laboratory Findings CBC and BMP: 12/01/20 04:22 12/01/20 04:22 PT/INR, D-dimer D-Dimer 173.47 ng/mlDDU (0-234) 11/30/20 06:28 Abnormal lab findings: Abnormal Labs 11/30/20 11/30/20 11/30/20 05:36 05:36 10:15 WBC 12.9 H MCV 98 H MCH 34 H Lymph % (Auto) 10.9 L [place] % (Auto) [place] # (Auto) 0.9 H Seg Neutrophils % 81.3 H Seg Neutrophils # 10.5 H Sodium 146 H Carbon Dioxide 32 H Glucose 102 H Calcium Total Protein 6.1 L Albumin 3.8 L LDL Cholesterol Direct 136 H 12/01/20 12/01/20 04:22 04:22 WBC MCV 99 H MCH 34 H Lymph % (Auto) [place] % (Auto) 9.1 H [place] # (Auto) 0.9 H Seg Neutrophils % Seg Neutrophils # Sodium Carbon Dioxide 32 H Glucose 103 H Calcium 7.9 L Total Protein Albumin LDL Cholesterol Direct
[2020-12-01] MEDS: traZODone 100 MG TAB PO SCH (22:08)
[2020-12-02] MEDS: dilTIAZem 60 MG TAB PO SCH ×2 (00:03→05:47)
[2020-12-02 07:40] VITALS: BP 130/57
--- NOTE | 2020-12-02 08:45 | Progress Note ---
Assessment and Plan Assessment and plan: Patient is a 80-year-old female with past medical history significant for high blood pressure, gout, hyperlipidemia, left carotid enterectomy, who recently had a negative cardiac catheterization done at [facility] in 2019. She follows with primary care Dr. Padgett computer system technician Dr. Motley. She presents to the ER today following waking up at 2:30 AM in the morning with shortness of breath while walking around thinking that it will go away says she began to have midsternal chest pressure which started in the epigastric region and then radiated all the way to the base of bilateral side of the neck. She denied any nausea vomiting. She rates the pain a 9/10 in intensity got her very anxious an d prompted presentation to the ED. She denies tobacco use or illicit drug use although reports that her father had NV in her in his early 50s. She reports occasional drink maybe once a month with the . And limited to a glass. In the ER she was noted to have a negative D-dimer and no abnormality on EKG although I have not seen the latter. She was requested for admission as her blood pressure was significantly elevated. Otherwise she states that her blood pressures regularly controlled with current medication with pressures normally in the 120s systolic. Atypical chest pain Hypertensive urgency Acute respiratory failure with hypoxia Atrial fibrillation Febrile illness possible Pneumonia. -POA Hyperlipidemia Gout Status post left total enterectomy Leukocytosis Anxiety Plan 12/01: Continue supportive care, started on anticoagulation and rate controlling agent for the Atrial fibrillation 12/02: Patient back to NSR, unsure if this is paroxysmal Atrial fibrillation but may be new onset. she is now rate controlled on Diltiazem and Eliquis for AC. I have discussed with her and her daughter. Stress test was unremarkable. Review of Her CT in my opinion has some left basilar infiltrates, she was started on Antibiotics yesterday due to low grade fever which has improved today and will complete the 7 days treatment on discharge. Anticipate discharge in AM if ok with cardiology. Will obtain Pulmonary consultation for management of shortness of breath Empiric Antibiotic coverage Cardiology consult Resume home medications Nebulizer treatments scheduled and as needed If patient develops a fever will start patient on antibiotics at this point there is no evidence of sepsis we will monitor leukocytosis as this could be reactive. Hydralazin as needed for better blood pressure control Discussed with cardiology may consider changing amlodipine to Procardia if blood pressure remains uncontrolled We will obtain a CTA of the chest to rule out pulmonary embolism this has been discussed with the patient in addition to risk of contrast. Keep n.p.o. after midnight in case computer system technician recommend stress test Pain control and antiemetic medication PPI DVT and GI prophylaxis Plan of care discussed with the patient in detail Case also discussed with computer system technician at bedside. History Interval history: Patient seen and examined, clinical stable, stable respiratory state, states that she is now able to cough up some secretions. She believes that she has had irregular heart beat before but is not sure. Hospitalist Physical - Physical exam Narrative exam: VITAL SIGNS: Reviewed. GENERAL: The patient appears normally developed, anxious appearing vital signs as documented. HEAD: No signs of head trauma. EYES: Pupils are equal. Extraocular motions intact. EARS: Hearing grossly intact. MOUTH: Oropharynx is normal. NECK: No adenopathy, no JVD. CHEST: Chest with clear breath sounds bilaterally. No wheezes, rales, or rhonchi. CARDIAC: Regular rate and rhythm. S1 and S2, without murmurs, gallops, or rubs. VASCULAR: No Edema. Peripheral pulses normal and equal in all extremities. ABDOMEN: Soft, non tender and non distended. No rebound or guarding, and no masses palpated. Bowel Sounds normal. MUSCULOSKELETAL: Good range of motion of all major joints. Extremities without clubbing, cyanosis or edema. NEUROLOGIC EXAM: Alert and oriented x 3 No focal sensory or strength deficits. Speech normal. Follows commands. PSYCHIATRIC: Mood normal. SKIN: detail exam as documented in skin assessment - Constitutional Vitals: Temp Pulse Resp BP Pulse Ox 980 F H 76 20 130/57 91 12/02/20 07:39 12/02/20 07:39 12/02/20 07:39 12/02/20 07:39 12/02/20 07:39 General appearance: Present: no acute distress HEART Score - HEART Score EKG: Non-specific Age: > 65 Risk factors: 1-2 risk factors Troponin: Troponin T < 0.010 ng/mL (0.00-0.029) 11/30/20 14:14 Troponin: < normal limit - Critical Actions Critical Actions: 4-6 pts:12-16.6% risk of adverse cardiac event. Should be admitted Results - Labs CBC & Chem 7: 12/01/20 04:22 12/01/20 04:22 Labs: Laboratory Last Values WBC 9.6 K/mm3 (4.5-11.0) 12/01/20 04:22 RBC 3.82 M/mm3 (3.65-5.03) 12/01/20 04:22 Hgb 12.9 gm/dl (10.1-14.3) 12/01/20 04:22 Hct 38.0 % (30.3-42.9) 12/01/20 04:22 MCV 99 fl (79-97) H 12/01/20 04:22 MCH 34 pg (28-32) H 12/01/20 04:22 MCHC 34 % (30-34) 12/01/20 04:22 RDW 14.4 % (13.2-15.2) 12/01/20 04:22 Plt Count 181 K/mm3 (140-440) 12/01/20 04:22 Lymph % (Auto) 21.6 % (13.4-35.0) 12/01/20 04:22 [place] % (Auto) 9.1 % (0.0-7.3) H 12/01/20 04:22 Eos % (Auto) 0.4 % (0.0-4.3) 12/01/20 04:22 Baso % (Auto) 0.7 % (0.0-1.8) 12/01/20 04:22 Lymph # (Auto) 2.1 K/mm3 (1.2-5.4) 12/01/20 04:22 [place] # (Auto) 0.9 K/mm3 (0.0-0.8) H 12/01/20 04:22 Eos # (Auto) 0.0 K/mm3 (0.0-0.4) 12/01/20 04:22 Baso # (Auto) 0.1 K/mm3 (0.0-0.1) 12/01/20 04:22 Seg Neutrophils % 68.2 % (40.0-70.0) 12/01/20 04:22 Seg Neutrophils # 6.6 K/mm3 (1.8-7.7) 12/01/20 04:22 D-Dimer 173.47 ng/mlDDU (0-234) 11/30/20 06:28 Sodium 142 mmol/L (137-145) 12/01/20 04:22 Potassium 3.7 mmol/L (3.6-5.0) 12/01/20 04:22 Chloride 100.3 mmol/L (98-107) 12/01/20 04:22 Carbon Dioxide 32 mmol/L (22-30) H 12/01/20 04:22 Anion Gap 13 mmol/L 12/01/20 04:22 BUN 7 mg/dL (7-17) 12/01/20 04:22 Creatinine 0.9 mg/dL (0.6-1.2) 12/01/20 04:22 Estimated GFR > 60 ml/min 12/01/20 04:22 BUN/Creatinine Ratio 8 % 12/01/20 04:22 Glucose 103 mg/dL (65-100) H 12/01/20 04:22 Calcium 7.9 mg/dL (8.4-10.2) L 12/01/20 04:22 Total Bilirubin 0.20 mg/dL (0.1-1.2) 11/30/20 05:36 AST 16 units/L (5-40) 11/30/20 05:36 ALT 12 units/L (7-56) 11/30/20 05:36 Alkaline Phosphatase 95 units/L (35-129) 11/30/20 05:36 Troponin T < 0.010 ng/mL (0.00-0.029) 11/30/20 14:14 Total Protein 6.1 g/dL (6.3-8.2) L 11/30/20 05:36 Albumin 3.8 g/dL (3.9-5) L 11/30/20 05:36 Albumin/Globulin Ratio 1.7 % 11/30/20 05:36 Triglycerides 114 mg/dL (2-149) 11/30/20 10:15 Cholesterol 199 mg/dL (50-199) 11/30/20 10:15 LDL Cholesterol Direct 136 mg/dL (50-130) H 11/30/20 10:15 HDL Cholesterol 54 mg/dL (40-59) 11/30/20 10:15 Cholesterol/HDL Ratio 3.68 % 11/30/20 10:15 Gallegos/IV: Voiding Method Toilet Active Medications - Current Medications Current Medications: Generic Name Dose Route Start Last Admin Trade Name Freq PRN Reason Stop Dose Admin Acetaminophen 650 mg 11/30/20 10:30 12/01/20 05:27 Acetaminophen 325 Mg Tab PO 650 mg Q4H PRN Administration Pain MILD(1-3)/Fever >100.5/TORRES Allopurinol 300 mg 12/01/20 10:00 12/01/20 10:52 Allopurinol 300 Mg Tab PO 300 mg QDAY BENY Administration Alprazolam 0.25 mg 11/30/20 11:00 Alprazolam 0.25 Mg Tab PO DAILY PRN Anxiety Amiodarone HCl 200 mg 12/01/20 10:00 12/01/20 22:08 Amiodarone 200 Mg Tab PO 200 mg BID BENY Administration Aspirin 81 mg 12/01/20 10:00 12/01/20 10:51 Aspirin 81 Mg Tab Chew PO 81 mg QDAY BENY Administration Atorvastatin Calcium 40 mg 11/30/20 22:00 12/01/20 22:08 Atorvastatin 40 Mg Tab PO 40 mg QHS BENY Administration Diltiazem HCl 60 mg 12/01/20 12:00 12/02/20 05:47 Diltiazem 60 Mg Tab PO 60 mg Q6HR BENY Administration Famotidine 20 mg 11/30/20 22:00 12/01/20 22:13 Famotidine 10 Mg Tab PO 20 mg BID BENY Administration Hydralazine HCl 10 mg 11/30/20 08:37 11/30/20 09:05 Hydralazine 20 Mg/1 Ml Inj IV 10 mg Q6HR PRN Administration Blood Pressure Levofloxacin/Dextrose 750 mg in 150 mls @ 100 mls/hr 12/01/20 08:00 12/01/20 11:10 Levaquin 750mg/150ml IV 100 mls/hr Q24H BENY Administration Protocol Morphine Sulfate 2 mg 11/30/20 11:00 Morphine 2 Mg/1 Ml Inj IV Q4H PRN Pain, Moderate (4-6) Naloxone HCl 0.1 mg 11/30/20 11:00 Naloxone 0.4 Mg/1 Ml Inj IV Q2MIN PRN Res Rate </= 8 or 02 SAT < 92% Ondansetron HCl 4 mg 11/30/20 11:00 Ondansetron 4 Mg/2 Ml Inj IV Q4H PRN Nausea And Vomiting Prednisone 5 mg 12/01/20 10:00 12/01/20 10:52 Prednisone 5 Mg Tab PO 5 mg DAILY BENY Administration Senna 8.6 mg 11/30/20 22:00 12/01/20 22:08 Sennosides 8.6 Mg Tab PO 8.6 mg Q12HR BENY Administration Sodium Chloride 10 ml 11/30/20 22:00 12/01/20 22:08 Sodium Chloride 0.9% 10 Ml Flush Syringe IV 10 ml BID BENY Administration Sodium Chloride 10 ml 11/30/20 10:02 Sodium Chloride 0.9% 10 Ml Flush Syringe IV PRN PRN LINE FLUSH Tramadol HCl 50 mg 11/30/20 11:00 Tramadol 50 Mg Tab PO Q6H PRN Pain, Moderate (4-6) Trazodone HCl 100 mg 11/30/20 22:00 12/01/20 22:08 Trazodone 100 Mg Tab PO 100 mg QHS BENY Administration
[2020-12-02] MEDS: AMIODARONE 200 MG TAB PO SCH (10:28)
[2020-12-02] MEDS: predniSONE 5 MG TAB PO SCH (10:28)
[2020-12-02] MEDS: allopurinoL 300 MG TAB PO SCH (10:28)
[2020-12-02] MEDS: ASPIRIN 81 MG TAB CHEW PO SCH (10:28)
[2020-12-02] MEDS: FAMOTIDINE 10 MG TAB PO SCH (10:28)
[2020-12-02] MEDS: SENNOSIDES 8.6 MG TAB PO SCH (10:28)
--- NOTE | 2020-12-02 10:40 | Progress Note ---
Assessment and Plan New onset rapid atrial fibrillation patient spontaneously reverted to sinus rhythm. Pleuritic chest pain Shortness of breath CTA of the chest that was negative for pulmonary embolism. Hypertension Echocardiogram shows normal to hyperdynamic left ventricular systolic function with ejection fraction 65 to 70%, no significant valvular lesions noted. Lexiscan thallium stress test - no ischemia 2018 [facility] [place]: normal coronaries. Recommendations: For paroxysmal atrial fibrillation will use Metoprolol, amiodarone, and Eliquis for oral anticoagulation. Stable cardiac chacon for discharge with outpatient follow up with her primary service order clerk at [facility]. Subjective Date of service: 12/02/20 Interval history: Patient appears comfortable. Denies SOB, chest pain, and palpitations. Stable sinus rhythm on telemetry. Objective Vital Signs Temp Pulse Pulse Resp Resp BP BP 12/02/20 08:00 76 12/02/20 07:39 980 F H 76 20 130/57 12/02/20 00:06 97.8 F 89 20 139/67 12/02/20 00:00 83 12/01/20 20:37 12/01/20 20:36 86 19 12/01/20 19:58 97.9 F 81 16 119/59 12/01/20 15:44 97.6 F 87 19 131/68 12/01/20 15:28 89 139/70 12/01/20 11:57 98.2 F 93 H 18 124/63 12/01/20 11:29 20 Pulse Ox 12/02/20 08:00 12/02/20 07:39 91 12/02/20 00:06 92 12/02/20 00:00 12/01/20 20:37 94 12/01/20 20:36 12/01/20 19:58 93 12/01/20 15:44 95 12/01/20 15:28 12/01/20 11:57 98 12/01/20 11:29 - Physical Examination General: No Apparent Distress HEENT: Positive: PERRL Neck: Positive: trachea midline Cardiac: Positive: Reg Rate and Rhythm Lungs: Positive: Normal Breath Sounds Neuro: Positive: Grossly Intact Extremities: Absent: edema
[2020-12-02] MEDS ORDERED: METOPROLOL TARTRATE 50 MG TAB PO SCH (11:00)
[2020-12-02] MEDS ORDERED: APIXABAN 5 MG TAB PO SCH (11:00)
--- NOTE | 2020-12-02 11:40 | Discharge Summary ---
Providers - Providers Date of Admission: 12/01/20 16:04 Attending physician: BEKAH GUEVARA MD 11/30/20 Consult to Cardiac Rehabilitation [CONS] Routine Reason For Exam: Phase I 11/30/20 08:38 Consult to Physician [CONS] Routine Comment: Consulting Provider: RAGHAV LAUGHLIN Physician Instructions: Reason For Exam: CHEST PAIN 12/01/20 09:34 Consult to Physician [CONS] Routine Comment: Consulting Provider: MADIHA MULELER Physician Instructions: Reason For Exam: SOB, persistent dyspnea Primary care physician: NILE GATES Hospitalization Reason for admission: Shortness of Condition: Serious Hospital course: Patient is a 80-year-old female with past medical history significant for high blood pressure, gout, hyperlipidemia, left carotid enterectomy, who recently had a negative cardiac catheterization done at [facility] in 2019. She follows with primary care Dr. Padgett nurse practitioner Dr. Motley. She presents to the ER today following waking up at 2:30 AM in the morning with shortness of breath while walking around thinking that it will go away says she began to have midsternal chest pressure which started in the epigastric region and then radiated all the way to the base of bilateral side of the neck. She denied any nausea vomiting. She rates the pain a 9/10 in intensity got her very anxious and prompted presentation to the ED. She denies tobacco use or illicit drug use although reports that her father had [place] in her in his early 50s. She reports occasional drink maybe once a month with the . And limited to a glass. In the ER she was noted to have a negative D-dimer and no abnormality on EKG although I have not seen the latter. She was requested for admission as her blood pressure was significantly elevated. Otherwise she states that her blood pressures regularly controlled with current medication with pressures normally in the 120s systolic. Patient is a 80-year-old female with past medical history significant for high blood pressure, gout, hyperlipidemia, left carotid enterectomy, who recently had a negative cardiac catheterization done at [facility] in 2019. She follows with primary care Dr. Padgett nurse practitioner Dr. Motley. She presents to the ER today following waking up at 2:30 AM in the morning with shortness of breath while walking around thinking that it will go away says she began to have midsternal chest pressure which started in the epigastric region and then radiated all the way to the base of bilateral side of the neck. She denied any nausea vomiting. She rates the pain a 9/10 in intensity got her very anxious and prompted presentation to the ED. She denies tobacco use or illicit drug use although reports that her father had [place] in her in his early 50s. She reports occasional drink maybe once a month with the . And limited to a glass. In the ER she was noted to have a negative D-dimer and no abnormality on EKG although I have not seen the latter. She was requested for admission as her blood pressure was significantly elevated. Otherwise she states that her blood pressures regularly controlled with current medication with pressures normally in the 120s systolic. 12/01: Continue supportive care, started on anticoagulation and rate controlling agent for the Atrial fibrillation 12/02: Patient back to NSR, unsure if this is paroxysmal Atrial fibrillation but may be new onset. she is now rate controlled on Diltiazem and Eliquis for AC. I have discussed with her and her daughter. Stress test was unremarkable. Review of Her CT in my opinion has some left basilar infiltrates, she was started on Antibiotics yesterday due to low grade fever which has improved today and will complete the 7 days treatment on discharge. Anticipate discharge in AM if ok with cardiology. Further discussed with cardiology today and the recommendations that the patient can be discharged today as medications have been adjusted. Patient is agreeable to this plan and will be going home today. Atypical chest pain Hypertensive urgency Acute respiratory failure with hypoxia Atrial fibrillation Febrile illness possible Pneumonia. -POA Hyperlipidemia Gout Status post left total enterectomy Leukocytosis Anxiety Disposition: DC-01 TO HOME OR SELFCARE Final Discharge Diagnosis (Prints w/discharge instructions): Atrial fibrillation with RVR Time spent for discharge: 35 minutes Core Measure Documentation - Palliative Care Palliative Care/ Comfort Measures: Not Applicable - Core Measures Any of the following diagnoses?: none Exam - Physical Exam Narrative exam: VITAL SIGNS: Reviewed. GENERAL: The patient appears normally developed, anxious appearing vital signs as documented. HEAD: No signs of head trauma. EYES: Pupils are equal. Extraocular motions intact. EARS: Hearing grossly intact. MOUTH: Oropharynx is normal. NECK: No adenopathy, no JVD. CHEST: Chest with clear breath sounds bilaterally. No wheezes, rales, or rhonchi. CARDIAC: Regular rate and rhythm. S1 and S2, without murmurs, gallops, or rubs. VASCULAR: No Edema. Peripheral pulses normal and equal in all extremities. ABDOMEN: Soft, non tender and non distended. No rebound or guarding, and no masses palpated. Bowel Sounds normal. MUSCULOSKELETAL: Good range of motion of all major joints. Extremities without clubbing, cyanosis or edema. NEUROLOGIC EXAM: Alert and oriented x 3 No focal sensory or strength deficits. Speech normal. Follows commands. PSYCHIATRIC: Mood normal. SKIN: detail exam as documented in skin assessment - Constitutional Vitals: Temp Pulse Resp BP Pulse Ox 980 F H 76 20 130/57 91 12/02/20 07:39 12/02/20 08:00 12/02/20 07:39 12/02/20 07:39 12/02/20 07:39 Plan Activity: advance as tolerated, fall precautions (Discussed with the patient as she is now on anticoagulation) Diet: low fat Special Instructions: record daily weights, record daily BP diary Follow up with: NILE GATES JR, MD [Primary Care Provider] - 7 Days MADIHA MUELLER MD [Staff Physician] - 7 Days NETO CHURCH MD [Staff Physician] - 7 Days Prescriptions: AtorvaSTATin [Lipitor] 40 mg PO QHS #30 tablet Aspirin [Aspirin BABY CHEW TAB] 81 mg PO QDAY #30 tab.chew Amiodarone [Cordarone 200 MG TAB] 200 mg PO QDAY #30 tablet Apixaban [Eliquis] 5 mg PO Q12HR #60 tablet levoFLOXacin [Levaquin TAB] 500 mg PO QDAY #3 tablet Metoprolol [Lopressor TAB] 50 mg PO BID #60 tablet Famotidine [Pepcid] 20 mg PO BID #120 tablet Albuterol Mdi (or & Nicu Only) [ProAir HFA Inhaler] 2 puff IH QID PRN #8.5 gram PRN Reason: Shortness Of Breath
[2020-12-02 11:45] LABS: Hematocrit 40.3 % (30.3-42.9); Hemoglobin 13.6 gm/dl (10.1-14.3); Mean Corpuscular HGB Conc 34 % (30-34); Mean Corpuscular Volume 101 fl (79-97); Platelet Count 172 K/mm3 (140-440); Red Blood Count 3.98 M/mm3 (3.65-5.03); Red Cell Distribution Width 14.4 % (13.2-15.2)
[2020-12-02 11:58] LABS: INR 1.16 (0.87-1.13)
[2020-12-02 11:59] LABS: Partial Thromboplastin Time 26.8 Sec. (24.2-36.6)
--- NOTE | 2020-12-02 13:31 | Electrocardiograph Report ---
[facility] Test Date: 2020-12-01 Test Time: 11:04:47 Pat Name: MARILYN ROBLES Department: Room: A452 1 Gender: F Professional Development Director: RUSSEL : 1940 Requested By: BEKAH GUEVARA Order Number: [id number] Reading MD: Chica Kim Measurements Intervals [place] Rate: 101 P: 37 CO: 185 QRS: -31 QRSD: 88 T: 44 QT: 375 QTc: 486 Interpretive Statements Sinus tachycardia Left ventricle hypertrophy Compared to ECG 11/30/2020 12:31:15 No significant change Electronically Signed On 12-02-2020 13:31:43 EDT by Chica Kim
[2020-12-03] MEDS ORDERED: AMIODARONE 200 MG TAB PO SCH (10:00)
== END 2020-12-02 13:06 | disposition home or self-care (01) ==
LOC: ED 04:19 → 4A 07:31 → OBSVTOIN 12-01 16:04 → INTOOBSV 12-01 16:04
PROVIDERS: ADMIT Internal Medicine; ATTEND Internal Medicine
DX: J96.01 Acute respiratory failure with hypoxia (principal); I16.0 Hypertensive urgency; I20.8 Other forms of angina pectoris; E78.5 Hyperlipidemia, unspecified; M10.9 Gout, unspecified; I48.20 Chronic atrial fibrillation, unspecified; D72.829 Elevated white blood cell count, unspecified; K21.9 Gastro-esophageal reflux disease without esophagitis; F41.9 Anxiety disorder, unspecified; R07.89 Other chest pain; Z79.899 Other long term (current) drug therapy; Z98.890 Other specified postprocedural states; Z79.82 Long term (current) use of aspirin; Z90.49 Acquired absence of other specified parts of digestive tract
CPT/HCPCS: 36415; 71045; 71275; 78452; 80048; 80053; 80061; 82565; 84484; 85025; 85027; 85379; 85610; 85730; 93005; 93017; 93306; 94640; 96365; 96366; 96368; 96372; 96375; 99285; A9270; A9502; G0378; J0282; J0360; J1650; J1956; J2270; J2405; J2785; J7512; Q9967

== ENCOUNTER 2021-10-26 13:42 | Emergency (ER) | payer MEDICARE ==
[2021-10-26] MEDS ORDERED: ONDANSETRON 4 MG/2 ML INJ IV ONE (14:12)
[2021-10-26] MEDS ORDERED: hydrALAZINE 20 MG/1 ML INJ IV ONE ×2 (14:12→18:44)
--- NOTE | 2021-10-26 14:15 | Emergency Department Report ---
ED General Adult HPI - General Chief complaint: High BP Stated complaint: MALAISE,DARCI/HTN Time Seen by Provider: 10/26/21 13:57 Source: patient, EMS Mode of arrival: Stretcher Limitations: No Limitations - History of Present Illness Initial comments: Patient is 81 years old female with history of hypertension and atrial fibrillation on Xarelto. Patient also taking metoprolol 25 mg twice a day for blood pressure. Patient brought to the emergency room via EMS from home for evaluation of high blood pressure. Patient stated that she has been having some shortness of breath also for the last few days. Patient denied any chest pain. No cough, fever or chills. -: This morning Severity scale (0 -10): 0 - Related Data Home Medications Medication Instructions Recorded Confirmed Last Taken allopurinoL [Zyloprim] 300 mg PO QDAY 11/30/20 10/26/21 1 Day Ago ~10/25/21 traZODone [Desyrel] 100 mg PO QHS 11/30/20 10/26/21 1 Day Ago ~10/25/21 Alprazolam 0.25 mg PO BID 10/26/21 10/26/21 1 Day Ago ~10/25/21 Metoprolol [Lopressor TAB] 25 mg PO BID 10/26/21 10/26/21 1 Day Ago ~10/25/21 Restora Rx Capsule 1.25 mg PO QDAY 10/26/21 10/26/21 1 Day Ago ~10/25/21 Previous Rx's Medication Instructions Recorded Last Taken Type Apixaban [Eliquis] 5 mg PO Q12HR #60 tablet 12/02/20 1 Day Ago Rx ~10/25/21 Allergies Allergy/AdvReac Type Severity Reaction Status Date / Time codeine Allergy Rash Verified 10/26/21 15:33 ED Review of Systems ROS: Stated complaint: MALAISE,DARCI/HTN Other details as noted in HPI Comment: All other systems reviewed and negative Constitutional: denies: chills, fever Respiratory: orthopnea, shortness of breath, SOB with exertion, SOB at rest. denies: cough, wheezing Cardiovascular: denies: chest pain, palpitations Gastrointestinal: abdominal pain, nausea Musculoskeletal: denies: back pain Neurological: denies: headache, weakness, numbness, paresthesias, confusion ED Past Medical Hx - Past Medical History Hx Hypertension: Yes Additional medical history: Afib. gout. anxiety - Social History Smoking Status: Never Smoker - Medications Home Medications: Home Medications Medication Instructions Recorded Confirmed Last Taken Type allopurinoL [Zyloprim] 300 mg PO QDAY 11/30/20 10/26/21 1 Day Ago History ~10/25/21 traZODone [Desyrel] 100 mg PO QHS 11/30/20 10/26/21 1 Day Ago History ~10/25/21 Apixaban [Eliquis] 5 mg PO Q12HR #60 tablet 12/02/20 10/26/21 1 Day Ago Rx ~10/25/21 Alprazolam 0.25 mg PO BID 10/26/21 10/26/21 1 Day Ago History ~10/25/21 Metoprolol [Lopressor TAB] 25 mg PO BID 10/26/21 10/26/21 1 Day Ago History ~10/25/21 Restora Rx Capsule 1.25 mg PO QDAY 10/26/21 10/26/21 1 Day Ago History ~10/25/21 ED Physical Exam - General Limitations: No Limitations General appearance: alert, in no apparent distress - Head Head exam: Present: atraumatic, normocephalic, normal inspection - Eye Eye exam: Present: normal appearance - ENT ENT exam: Present: normal exam, normal orophraynx, mucous membranes moist - Neck Neck exam: Present: normal inspection, full ROM. Absent: tenderness, meningismus - Respiratory Respiratory exam: Present: normal lung sounds bilaterally - Cardiovascular Cardiovascular Exam: Present: irregular rhythm - GI/Abdominal GI/Abdominal exam: Present: soft, normal bowel sounds. Absent: distended, tenderness, guarding, rebound, rigid, organomegaly, mass, bruit, pulsatile mass, hernia - Extremities Exam Extremities exam: Present: normal inspection, full ROM, normal capillary refill. Absent: pedal edema, calf tenderness - Back Exam Back exam: Present: normal inspection, full ROM. Absent: CVA tenderness (R), CVA tenderness (L) - Neurological Exam Neurological exam: Present: alert, oriented X3, CN II-XII intact, normal gait, reflexes normal. Absent: motor sensory deficit - Psychiatric Psychiatric exam: Present: normal mood - Skin Skin exam: Present: warm, intact, normal color ED Course Vital Signs 10/26/21 10/26/21 10/26/21 13:49 14:09 14:15 Temperature 98.7 F Pulse Rate 76 Respiratory 16 Rate Blood Pressure 236/104 Blood Pressure 218/94 [Right] O2 Sat by Pulse 100 99 100 Oximetry 10/26/21 10/26/21 10/26/21 14:31 14:45 14:59 Temperature Pulse Rate 82 75 Respiratory 15 12 Rate Blood Pressure 236/104 218/83 Blood Pressure [Right] O2 Sat by Pulse 100 99 98 Oximetry 10/26/21 10/26/21 10/26/21 15:01 15:06 15:15 Temperature Pulse Rate 76 72 79 Respiratory 10 L 11 L Rate Blood Pressure 218/83 218/83 213/83 Blood Pressure [Right] O2 Sat by Pulse 100 99 Oximetry 10/26/21 10/26/21 10/26/21 15:31 15:42 15:45 Temperature Pulse Rate 84 89 Respiratory 12 18 18 Rate Blood Pressure 213/83 174/66 Blood Pressure [Right] O2 Sat by Pulse 99 98 99 Oximetry 10/26/21 10/26/21 10/26/21 15:48 16:01 16:15 Temperature Pulse Rate 93 H 92 H 89 Respiratory 19 11 L Rate Blood Pressure 174/66 168/72 Blood Pressure 174/66 [Right] O2 Sat by Pulse 98 100 Oximetry ED Medical Decision Making - Lab Data Result diagrams: 10/26/21 14:55 10/26/21 14:55 - EKG Data -: EKG Interpreted by [facility] EKG shows normal: sinus rhythm Rate: normal - EKG Data Interpretation: no acute changes - Radiology Data Radiology results: report reviewed - Medical Decision Making Patient is 81 years old female with history of hypertension and atrial fibrillation on Xarelto. Patient also taking metoprolol 25 mg twice a day for blood pressure. Patient brought to the emergency room via EMS from home for evaluation of high blood pressure. Patient stated that she has been having some shortness of breath also for the last few days. Patient denied any chest pain. No cough, fever or chills. EKG is unremarkable. Labs reviewed and is unremarkable except for slightly elevated lactic acid of 3.7 however there is no evidence to suggest infection. Urinalysis negative. Chest x-ray is unremarkable. CT abdomen pelvis with IV contrast is unremarkable. Patient received hydralazine 20 mg IV and that helped control the blood pressure. Patient advised to follow-up with her primary care physician in the next 2 to 3 days and to return to the ER if she develop any new symptoms. Critical care attestation.: If time is entered above; I have spent that time in minutes in the direct care of this critically ill patient, excluding procedure time. ED Disposition Clinical Impression: Malignant hypertension, Acute abdominal pain Disposition: HOME / SELF CARE / HOMELESS Is pt being admited?: No Condition: Stable Instructions: Hypertension (ED), Hypertension, Adult, [id number], Abdominal Pain, Adult, [id number] Referrals: PRIMARY CARE, [Primary Care Provider] - 3-5 Days
--- NOTE | 2021-10-26 14:43 | XRay Report ---
CHEST 1 VIEW INDICATION: Dyspnea. COMPARISON: 11/30/2020 FINDINGS: Support devices: None. Heart: Normal. Lungs/Pleura: No acute pulmonary or pleural findings. IMPRESSION: 1. No acute findings. Signer Name: Aric Gaytan MD Signed: 10/26/2021 2:39 PM Workstation Name: [id number]
[2021-10-26 15:04] LABS: Bilirubin,Urine NEG (Negative); Blood,Urine NEG (Negative); Color,Urine Straw (Yellow); Mucus,Urine FEW /HPF; Protein,Urine <15 mg/dL mg/dL (Negative); Urobilinogen,Urine < 2.0 mg/dL (<2.0)
[2021-10-26 15:20] LABS: Basophils % (Auto) 0.4 % (0.0-1.8); Eosinophils # (Auto) 0.1 K/mm3 (0.0-0.4); Eosinophils % (Auto) 0.7 % (0.0-4.3); Hemoglobin 15.2 gm/dl (10.1-14.3); Lymphocytes # (Auto) 2.6 K/mm3 (1.2-5.4); Lymphocytes % (Auto) 31.3 % (13.4-35.0); Mean Corpuscular HGB Conc 34 % (30-34); Mean Corpuscular Volume 100 fl (79-97); Monocytes # (Auto) 0.7 K/mm3 (0.0-0.8); Platelet Count 164 K/mm3 (140-440); Red Blood Count 4.52 M/mm3 (3.65-5.03)
[2021-10-26 15:31] LABS: INR 1.01 (0.87-1.13)
[2021-10-26 15:32] LABS: Partial Thromboplastin Time 26.7 Sec. (24.2-36.6)
[2021-10-26 15:46] LABS: Alanine Aminotransferase 10 units/L (7-56); Albumin 4.9 g/dL (3.9-5); BUN/Creatinine Ratio 13; Blood Urea Nitrogen 12 mg/dL (7-17); Calcium 9.8 mg/dL (8.4-10.2); Hemolysis Index 5
[2021-10-26 15:47] LABS: Bilirubin,Direct < 0.2 mg/dL (0-0.2)
[2021-10-26] MEDS ORDERED: SODIUM CHLORIDE 0.9% 1000 ML 1,000 ML IV ONE (16:32)
--- NOTE | 2021-10-26 17:28 | Cat Scan Report ---
CT ABDOMEN AND PELVIS WITH CONTRAST HISTORY: abdominal pain 100 ml omni 300 COMPARISON: None TECHNIQUE: Routine abdominal and pelvic CT exam performed following intravenous contrast administrat ion.. All CT scans at this location are performed using CT dose reduction for ALARA by means of autom ated exposure control. FINDINGS: CT ABDOMEN: Lung Bases: No significant abnormality. Liver: No significant abnormality. Biliary: No significant abnormality. Spleen: No significant abnormality. Unenlarged. Pancreas: No significant abnormality. Adrenals: No significant abnormality. Kidneys: No significant abnormality. Lymphatics: No lymphadenopathy. Vasculature: Atherosclerotic but nonaneurysmal abdominal aorta. Bowel/Peritoneum: Nonobstructive bowel. Sigmoid diverticulosis without mesocolonic fat stranding. No free air. No free fluid. CT PELVIC: : No significant abnormality. Lymphatics: No lymphadenopathy. Osseous Structures: No aggressive appearing osseous lesions. Additional Findings: None IMPRESSION: 1. No significant abnormality. Signer Name: Cisco Salvador MD Signed: 10/26/2021 5:24 PM Workstation Name: [email or web address]
[2021-10-26 19:45] VITALS: BP 158/72
--- NOTE | 2021-10-27 10:16 | Electrocardiograph Report ---
[facility] Test Date: 2021-10-26 Test Time: 14:39:06 Pat Name: MARILYN ROBLES Department: Room: Gender: F News Specialist: MARILEE : 1940 Requested By: GWYN CARVER Order Number: [id number] Reading MD: Steven Mcwilliams Measurements Intervals [place] Rate: 73 P: 23 MI: 164 QRS: 11 QRSD: 90 T: 53 QT: 469 QTc: 518 Interpretive Statements Sinus rhythm nonspecific st-t Compared to ECG 12/01/2020 11:04:47 Electronically Signed On 10-27-2021 10:15:35 EDT by Steven Mcwilliams
== END 2021-10-26 19:46 | disposition home or self-care (01) ==
LOC: ED 13:42
DX: I10 Essential (primary) hypertension (principal); R10.9 Unspecified abdominal pain; I48.91 Unspecified atrial fibrillation; M10.9 Gout, unspecified; F41.9 Anxiety disorder, unspecified; Z79.899 Other long term (current) drug therapy; Z88.5 Allergy status to narcotic agent
CPT/HCPCS: 36415; 71045; 74177; 80048; 80076; 81001; 82140; 83880; 84484; 85025; 85610; 85730; 93005; 96361; 96374; 96375; 96376; 99285; J0360; J2405; J7030; Q9967